=== PATIENT | male | born 1985 | race African-American/Black ===

== ENCOUNTER 2017-12-19 20:42 | Emergency (ER) | payer SELFPAY ==
[~2017-12-19] VITALS: Ht 172.7 cm; Wt 75.0 kg
[2017-12-19] MEDS ORDERED: IBUPROFEN 600MG TABLET PO ONE (23:30)
[2017-12-19 23:57] VITALS: BP 121/83
== END 2017-12-19 23:58 | disposition home or self-care (01) ==
LOC: ER 20:42
DX: S00.83XA Contusion of other part of head, initial encounter (principal); M54.2 Cervicalgia; R03.0 Elevated blood-pressure reading, without diagnosis of hypertension; V49.40XA Driver injured in collision with unspecified motor vehicles in traffic accident, initial encounter; Y93.89 Activity, other specified; Y92.410 Unspecified street and highway as the place of occurrence of the external cause
CPT/HCPCS: 99283